=== PATIENT | male | born 1980 | race Caucasian/White ===

== ENCOUNTER 2022-09-01 08:43 | Outpatient (CLI) | payer OTHER, SELFPAY | END 2022-09-01 08:44 | disposition home or self-care (01) | PROVIDERS: PCP Family Medicine; Visit Provider Emergency Medicine | DX: N41.1 Chronic prostatitis (principal); R39.11 Hesitancy of micturition | CPT/HCPCS: 86140; 87086 ==

== ENCOUNTER 2023-07-01 08:58 | Outpatient (CLI) | payer OTHER, SELFPAY | END 2023-07-01 08:59 | disposition home or self-care (01) | LOC: LKVREF 08:59 | PROVIDERS: PCP Family Medicine; Visit Provider Family Medicine | DX: R68.82 Decreased libido (principal); E78.00 Pure hypercholesterolemia, unspecified; R53.83 Other fatigue | CPT/HCPCS: 80053; 80061; 84270; 84402; 84403 ==